=== PATIENT | female | born 1995 | race Hispanic/Latino ===

== ENCOUNTER 2017-03-10 12:03 | Emergency (ER) | payer MEDICAID, OTHER ==
[2017-03-10 12:35] VITALS: BP 122/50; PULSE 63; RESP 18; TEMP 97; O2SAT 100
[2017-03-10] MEDS ORDERED: Sodium Chloride 0.9% 1,000 ML IV STA (13:01)
--- NOTE | 2017-03-10 13:06 | ED PDOC ---
HPI: Abdomen Time Seen by Provider: 03/10/17 12:24 Chief Complaint (Nursing): Abdominal Pain Chief Complaint (Provider): Right upper quadrant abdominal pain History Per: Patient History/Exam Limitations: no limitations Outside of [place] travel?: No Current Symptoms Are (Timing): Still Present Location Of Pain/Discomfort: RUQ Quality Of Discomfort: "Pain" Associated Symptoms: Nausea. denies: Vomiting, Diarrhea, Urinary Symptoms Additional Complaint(s): 22yo female, past medical history of psoriatic arthritis, presents to the ED for evaluation of right upper quadrant pain, associated with nausea. Patient denies any fever, vomiting, diarrhea, urinary symptoms. No other complaints. Past Medical History Reviewed: Historical Data, Nursing Documentation, Vital Signs Vital Signs: Last Vital Signs Temp 97 F L 03/10/17 12:33 Pulse 63 03/10/17 12:33 Resp 18 03/10/17 12:33 BP 122/50 L 03/10/17 12:33 Pulse Ox 100 03/10/17 14:43 - Medical History PMH: Arthritis (psoriatic arthritis) - Surgical History Surgical History: No Surg Hx - Family History Family History: States: No Known Family Hx - Home Medications Home Medications: Ambulatory Orders Medication Instructions Recorded Famotidine [Pepcid] 20 mg PO Q12 #20 tab 03/10/17 - Allergies Allergies/Adverse Reactions: Allergies Allergy/AdvReac Type Severity Reaction Status Date / Time ciprofloxacin [From Cipro] Allergy RASH Verified 03/10/17 12:31 Sulfa (Sulfonamide Allergy RASH Verified 03/10/17 12:31 Antibiotics) contrast dye Allergy RASH Uncoded 03/10/17 12:33 Review of Systems ROS Statement: Except As Marked, All Systems Reviewed And Found Negative Constitutional: Negative for: Fever Gastrointestinal: Positive for: Nausea, Abdominal Pain. Negative for: Vomiting , Diarrhea Genitourinary Female: Negative for: Dysuria, Hematuria Physical Exam - Reviewed Nursing Documentation Reviewed: Yes Vital Signs Reviewed: Yes - Physical Exam Appears: Positive for: Non-toxic, No Acute Distress Head Exam: Positive for: ATRAUMATIC, NORMAL INSPECTION, NORMOCEPHALIC Skin: Positive for: Normal Color Eye Exam: Positive for: Normal appearance Neck: Positive for: Supple Cardiovascular/Chest: Positive for: Regular Rate, Rhythm Respiratory: Positive for: Normal Breath Sounds. Negative for: Respiratory Distress Gastrointestinal/Abdominal: Positive for: Soft, Tenderness (right upper quadrant ) Back: Negative for: R CVA Tenderness Extremity: Positive for: Normal ROM. Negative for: Deformity, Swelling Neurologic/Psych: Positive for: Alert, Oriented. Negative for: Motor/Sensory Deficits - Laboratory Results Result Diagrams: 03/10/17 13:23 03/10/17 13:23 - ECG O2 Sat by Pulse Oximetry: 100 (RA) Pulse Ox Interpretation: Normal - Progress Re-evaluation Time: 14:56 Condition: Improved Medical Decision Making Medical Decision Making: Time: 1301 Impression: Abdominal pain w/ nausea Plan: -- US Abdomen limited -- Labs -- Toradol 30 mg IVP -- IV Fluids Reassess - Randle Time: 14:36 CT Abdominal / Pelvis FINDINGS: LOWER THORAX: Lung bases clear. No infiltrate effusion or basilar pneumothorax. Heart size within normal. No significant pericardial effusion LIVER: Liver exhibits normal size measuring nearly 17 cm in CC dimension. Liver demonstrates a smooth contour without evidence of parenchymal masses collections or calcifications. No significant intrahepatic biliary ductal dilatation. GALLBLADDER AND BILE DUCTS: The gallbladder appears incompletely distended. No evidence of intraluminal gallbladder calculi. PANCREAS: The visualized portions of the pancreas appear grossly unremarkable. SPLEEN: Spleen exhibits normal size and attenuation pattern without mass collection or calcification. ADRENALS: There are no adrenal lesions. KIDNEYS AND URETERS: Kidneys demonstrate symmetric nephrograms. No evidence of nephrolithiasis or hydronephrosis. The urinary bladder is physiologically distended. No evidence of intraluminal urinary bladder calculi. BLADDER: Urinary bladder is physiologically distended. No evidence of intraluminal urinary bladder calculi. REPRODUCTIVE: The uterus appears elongated CC dimension. There is slight heterogeneous appearance of the right uterine fundal region which could be secondary to volume averaging of the right ovary. Possibility of fibroid not excluded. APPENDIX: Normal-appearing partially retrocecal appendix best seen on axial image number [id number]. No periappendiceal inflammatory changes. BOWEL: Evaluation of the bowel is somewhat limited due to the lack of oral contrast material. The stomach is incompletely distended. Visualized loops of small bowel exhibit relatively normal contour and caliber. There is a very large amount of stool seen throughout the cecum ascending and transverse colon consistent with fecal retention/ constipation. PERITONEUM: No gross free intraperitoneal air. No evidence of free or loculated fluid collection. LYMPH NODES: No significant bulky and/or pathologically enlarged adenopathy. VASCULATURE: Unremarkable. No aortic aneurysm. BONES: No fracture or destructive lesion. OTHER FINDINGS: None. IMPRESSION: Somewhat limited study as described. Findings consistent with fecal retention/ constipation. The uterus appears elongated CC dimension. There is slight heterogeneous appearance of the right uterine fundal region which could be secondary to volume averaging of the right ovary. Possibility of fibroid not excluded. No evidence of appendicitis. No obvious intraluminal gallbladder calculi. Time: 14:24 Abdomen Ultrasound FINDINGS: LIVER: Measures 13.9 cm in length. Patent portal vein. Portal venous flow: Hepatopetal. Unremarkeable echogenicity of the liver parenchyma. Hyperechoic well-circumscribed mass right hepatic lobe less than 1 cm likely hemangioma. GALLBLADDER: Contracted gallbladder without visible stones. Positive sonographic Morales's sign. COMMON BILE DUCT: Measures 2.5 mm. No stones. No dilatation. PANCREAS: Unremarkable as visualized. No mass. No ductal dilatation. RIGHT KIDNEY: Measures 5.1 x 10 cm in length. Normal echogenicity. No calculus, mass, or hydronephrosis. AORTA: No aneurysmal dilatation. IVC: Unremarkable. OTHER FINDINGS: None . IMPRESSION: Contracted gallbladder without evidence calculus disease. Positive sonographic Morales sign elicited by technologist. Additional benign and/or incidental findings described above Scribe Attestation: Documented by Love Tejada acting as a scribe for Bob Golden MD. Provider Attestation: All medical record entries made by the Scribe were at my direction and personally dictated by me. I have reviewed the chart and agree that the record accurately reflects my personal performance of the history, physical exam, medical decision making, and the department course for this patient. I have also personally directed, reviewed, and agree with the discharge instructions and disposition. Scribe Attestation: Documented by Vic Warren, acting as a scribe for Bob Golden MD Provider Scribe Attestation: All medical record entries made by the Scribe were at my direction and personally dictated by me. I have reviewed the chart and agree that the record accurately reflects my personal performance of the history, physical exam, medical decision making, and the department course for this patient. I have also personally directed, reviewed, and agree with the discharge instructions and disposition. Disposition - Clinical Impression Clinical Impression: Gastritis - Patient ED Disposition Is Patient to be Admitted: No - Disposition Referrals: Lolita CHAN,MD Nuha [Medical Doctor] - Disposition: Routine/Home Disposition Time: 14:57 Condition: FAIR Prescriptions: Famotidine [Pepcid] 20 mg PO Q12 #20 tab Instructions: Gastritis (ED) Forms: [employer] (Thai)
[2017-03-10 13:32] LABS: BASO # 0.1 K/uL (0.0-0.2); BASO % 0.9 % (0.0-2.0); EOS # 0.2 K/uL (0.0-0.7); HEMATOCRIT 41.4 % (34.0-47.0); LYMPH # 3.7 K/uL (1.0-4.3); LYMPH % 32.9 % (20.0-40.0); MEAN CELL VOLUME 86.6 fl (81.0-99.0); MEAN CORPUSCULAR HEMOGLOBIN 28.7 pg (27.0-31.0); MEAN CORPUSCULAR HGB CONC 33.2 g/dL (33.0-37.0); MEAN PLATELET VOLUME 8.5 fl (7.2-11.7); MONO # 0.6 K/uL (0.0-0.8); MONO % 5.3 % (0.0-10.0); NEUT # 6.6 K/uL (1.8-7.0); NEUT % 58.9 % (50.0-75.0); RED CELL DISTRIBUTION WIDTH 12.8 % (11.5-14.5); WHITE BLOOD COUNT 11.2 K/uL (4.8-10.8)
[2017-03-10 13:44] LABS: ALKALINE PHOSPHATASE 60 U/L (38-126); ALT/SGPT 38 U/L (9-52); AST/SGOT 41 U/L (14-36); BILIRUBIN,TOTAL 0.6 mg/dl (0.2-1.3); BLOOD UREA NITROGEN 13 mg/dl (7-17); CALCIUM 9.9 mg/dL (8.4-10.2); CARBON DIOXIDE 29 mmol/L (22-30); CHLORIDE 102 mmol/L (98-107); GFR AFRICAN-AMERICAN > 60; GLUCOSE,RANDOM 82 mg/dL (65-105); LIPASE 81 U/L (23-300); POTASSIUM 4.2 MMOL/L (3.6-5.0); SODIUM 143 mmol/l (132-148); TOTAL PROTEIN 8.7 G/DL (6.3-8.2)
[2017-03-10 13:46] LABS: ALB/GLOB RATIO 1.4 (1.0-2.1)
--- NOTE | 2017-03-10 14:25 | US ---
HISTORY: RUQ pain COMPARISON: None. TECHNIQUE: Sonographic evaluation of the right upper quadrant of the abdomen. FINDINGS: LIVER: Measures 13.9 cm in length. Patent portal vein. Portal venous flow: Hepatopetal. Unremarkeable echogenicity of the liver parenchyma. Hyperechoic well-circumscribed mass right hepatic lobe less than 1 cm likely hemangioma. GALLBLADDER: Contracted gallbladder without visible stones. Positive sonographic Morales's sign. COMMON BILE DUCT: Measures 2.5 mm. No stones. No dilatation. PANCREAS: Unremarkable as visualized. No mass. No ductal dilatation. RIGHT KIDNEY: Measures 5.1 x 10 cm in length. Normal echogenicity. No calculus, mass, or hydronephrosis. AORTA: No aneurysmal dilatation. IVC: Unremarkable. OTHER FINDINGS: None . IMPRESSION: Contracted gallbladder without evidence calculus disease. Positive sonographic Morales sign elicited by technologist. Additional benign and/or incidental findings described above.
--- NOTE | 2017-03-10 14:37 | CT ---
PROCEDURE: CT scan abdomen and pelvis dated 03/10/2017. HISTORY: Right-sided pain. COMPARISON: Correlation made with concurrent abdominal ultrasound TECHNIQUE: Contiguous axial images of the abdomen and pelvis. Oral contrast was administered. No IV contrast given. Coronal and Sagittal reformats generated. Radiation dose: Total exam DLP = 305.79 mGy-cm. This CT exam was performed using one or more of the following dose reduction techniques: Automated exposure control, adjustment of the mA and/or kV according to patient size, and/or use of iterative reconstruction technique. FINDINGS: LOWER THORAX: Lung bases clear. No infiltrate effusion or basilar pneumothorax. Heart size within normal. No significant pericardial effusion LIVER: Liver exhibits normal size measuring nearly 17 cm in CC dimension. Liver demonstrates a smooth contour without evidence of parenchymal masses collections or calcifications. No significant intrahepatic biliary ductal dilatation. GALLBLADDER AND BILE DUCTS: The gallbladder appears incompletely distended. No evidence of intraluminal gallbladder calculi. PANCREAS: The visualized portions of the pancreas appear grossly unremarkable. SPLEEN: Spleen exhibits normal size and attenuation pattern without mass collection or calcification. ADRENALS: There are no adrenal lesions. KIDNEYS AND URETERS: Kidneys demonstrate symmetric nephrograms. No evidence of nephrolithiasis or hydronephrosis. The urinary bladder is physiologically distended. No evidence of intraluminal urinary bladder calculi. BLADDER: Urinary bladder is physiologically distended. No evidence of intraluminal urinary bladder calculi. REPRODUCTIVE: The uterus appears elongated CC dimension. There is slight heterogeneous appearance of the right uterine fundal region which could be secondary to volume averaging of the right ovary. Possibility of fibroid not excluded. APPENDIX: Normal-appearing partially retrocecal appendix best seen on axial image number [id number]. No periappendiceal inflammatory changes. BOWEL: Evaluation of the bowel is somewhat limited due to the lack of oral contrast material. The stomach is incompletely distended. Visualized loops of small bowel exhibit relatively normal contour and caliber. There is a very large amount of stool seen throughout the cecum ascending and transverse colon consistent with fecal retention/ constipation. PERITONEUM: No gross free intraperitoneal air. No evidence of free or loculated fluid collection. LYMPH NODES: No significant bulky and/or pathologically enlarged adenopathy. VASCULATURE: Unremarkable. No aortic aneurysm. BONES: No fracture or destructive lesion. OTHER FINDINGS: None. IMPRESSION: Somewhat limited study as described. Findings consistent with fecal retention/constipation. The uterus appears elongated CC dimension. There is slight heterogeneous appearance of the right uterine fundal region which could be secondary to volume averaging of the right ovary. Possibility of fibroid not excluded. No evidence of appendicitis. No obvious intraluminal gallbladder calculi.
== END 2017-03-10 15:24 | disposition home or self-care (01) ==
LOC: H.ER 12:03
DX: K29.70 Gastritis, unspecified, without bleeding (principal)
CPT/HCPCS: 74176; 76705; 80053; 81025; 83690; 85025; 96374; 99282; J1885; J7040